=== PATIENT | male | born 1985 | race Caucasian/White ===

== ENCOUNTER 2023-07-15 12:13 | Emergency (ER) | payer BC ==
[~2023-07-15] VITALS: Ht 188 cm; Wt 90.0 kg
[2023-07-15 12:20] VITALS: BP 142/80; PULSE 76; RESP 16; TEMP 98.4; O2SAT 99
[2023-07-15] MEDS ORDERED: AMOX1TAB16 MT (17:06)
== END 2023-07-15 17:38 | disposition home or self-care (01) ==
LOC: ER 12:56
DX: S61.212A Laceration without foreign body of right middle finger without damage to nail, initial encounter (principal); X58.XXXA Exposure to other specified factors, initial encounter; Y93.89 Activity, other specified; Y92.89 Other specified places as the place of occurrence of the external cause; Y99.8 Other external cause status
CPT/HCPCS: 73130; 99283; Z7610